=== PATIENT | male | born 1970 | race Caucasian/White ===

== ENCOUNTER 2017-04-11 12:42 | Inpatient (IN) | payer OTHER ==
[~2017-04-11] VITALS: Ht 170.2 cm; Wt 78.3 kg
[2017-04-11 13:43] LABS: EOSINOPHIL (%) 0.7 % (0-5); EOSINOPHIL COUNT 0.1 K/uL (0-0.3); HEMATOCRIT 41.8 % (38.0-50.0); IMMATURE GRANULOCYTE (%) 0.5 % (0.0-0.7); IMMATURE GRANULOCYTE COUNT 0.1 K/uL; MCH 33.5 PG (29.0-34.0); MCHC 35.9 G/DL (30.0-36.0); MCV 93.3 FL (86-99); MEAN PLAT.VOLUME 9.6 uM^3 (9.0-12.4); MONOCYTE (%) 7.7 % (3-12); MONOCYTE COUNT 0.8 K/uL (0-0.8); NEUTROPHIL (%) 80.8 % (45-76); PLATELET COUNT 112 K/uL (156-360); RBC DIS.WIDTH-CV 13.3 % (11.8-14.6); RBC DIS.WIDTH-SD 45.4 % (39-53); RED BLOOD COUNT 4.48 M/uL (4.00-5.50); WHITE BLOOD COUNT 9.8 K/uL (4.1-10.2)
[2017-04-11 13:47] LABS: CHLORIDE 109 mEq/L (99-109); POTASSIUM 4.2 mEq/L (3.7-5.4); SODIUM 143 mEq/L (136-147)
[2017-04-11 13:49] LABS: GLUCOSE 127 mg/dL (70-99)
[2017-04-11 13:50] LABS: ANION GAP 9 MEQ/L (2-14)
[2017-04-11 13:52] LABS: GFR ESTIMATE (CALCULATED) 57 mL/min/
[2017-04-11 13:53] LABS: UREA NITROGEN (BUN) 12 mg/dL (9-23)
[2017-04-11] MEDS ORDERED: LO-DOSE ASPIRIN81 M2 PO (16:04)
[2017-04-11] MEDS ORDERED: ONE DAILY1 EAC3 PO (16:04)
[2017-04-11 17:25] LABS: ADD MIUA? YES; BILIRUBIN NEGATIVE; BLOOD MODERATE; COLOR STRAW ((YELLOW)); GLUCOSE (STRIP) 50; KETONES 5; LEUKOCYTES NEGATIVE; NITRITE NEGATIVE; PROTEIN (STRIP) NEGATIVE; SPECIFIC GRAVITY 1.029 (1.000-1.030); UROBILINOGEN 0.2 MG/DL (0.2-1.0)
[2017-04-11 17:37] LABS: BACTERIA NONE SEEN /HPF; EPITHELIAL CELLS NONE SEEN /HPF; MUCUS NONE SEEN /LPF; RED BLOOD CELLS 0-5 /HPF (0-5); WHITE BLOOD CELLS 0-5 /HPF (0-5)
[2017-04-12 00:11] VITALS: BP 130/90
[2017-04-12 07:07] LABS: EOSINOPHIL (%) 0.2 % (0-5); HEMATOCRIT 34.1 % (38.0-50.0); IMMATURE GRANULOCYTE (%) 0.2 % (0.0-0.7); INSTRUMENT ABS NEUTROPHIL CT 4.2 K/uL; LYMPHOCYTE COUNT 1.4 K/uL (1.0-2.8); MCHC 35.5 G/DL (30.0-36.0); MCV 95.8 FL (86-99); MEAN PLAT.VOLUME 9.8 uM^3 (9.0-12.4); MONOCYTE (%) 9.8 % (3-12); MONOCYTE COUNT 0.6 K/uL (0-0.8); NEUTROPHIL (%) 67.3 % (45-76); NEUTROPHIL COUNT 4.2 K/uL (1.8-6.4); PLATELET COUNT 85 K/uL (156-360); RBC DIS.WIDTH-CV 13.6 % (11.8-14.6); RBC DIS.WIDTH-SD 47.5 % (39-53); RED BLOOD COUNT 3.56 M/uL (4.00-5.50); WHITE BLOOD COUNT 6.3 K/uL (4.1-10.2)
[2017-04-12 07:36] VITALS: BP 151/74
[2017-04-12 07:47] LABS: ANION GAP 9 MEQ/L (2-14); CHLORIDE 106 MEQ/L (99-109); POTASSIUM 4.6 MEQ/L (3.7-5.4); SAMPLE HEMOLYSIS CHECK 1; SAMPLE ICTERIC CHECK 0; SAMPLE LIPEMIA CHECK 0; SODIUM 139 MEQ/L (136-147)
[2017-04-12 07:53] LABS: ALKALINE PHOSPHATASE 40 IU/L (3-129); GLUCOSE 115 mg/dL (70-99); UREA NITROGEN (BUN) 9 mg/dL (9-23)
[2017-04-12 07:54] LABS: GFR ESTIMATE (CALCULATED) > 59 mL/min/
[2017-04-12 12:01] VITALS: BP 147/83
[2017-04-12 16:57] VITALS: BP 136/87
[2017-04-12 19:39] VITALS: BP 134/61
[2017-04-12 23:21] VITALS: BP 117/60
[2017-04-13 03:53] VITALS: BP 127/66
[2017-04-13 07:47] VITALS: BP 124/59
[2017-04-13 15:35] VITALS: BP 122/72
[2017-04-13 19:30] VITALS: BP 130/67
[2017-04-14 00:06] VITALS: BP 130/72
[2017-04-14 04:00] VITALS: BP 122/64
[2017-04-14 07:29] LABS: EOSINOPHIL (%) 4.6 % (0-5); EOSINOPHIL COUNT 0.2 K/uL (0-0.3); HEMATOCRIT 30.4 % (38.0-50.0); IMMATURE GRANULOCYTE (%) 0.4 % (0.0-0.7); INSTRUMENT ABS NEUTROPHIL CT 3.1 K/uL; LYMPHOCYTE COUNT 1.1 K/uL (1.0-2.8); MCH 33.8 PG (29.0-34.0); MCHC 35.5 G/DL (30.0-36.0); MONOCYTE (%) 9.5 % (3-12); MONOCYTE COUNT 0.5 K/uL (0-0.8); NEUTROPHIL (%) 63.4 % (45-76); NEUTROPHIL COUNT 3.1 K/uL (1.8-6.4); RBC DIS.WIDTH-CV 13.2 % (11.8-14.6); RBC DIS.WIDTH-SD 45.2 % (39-53); WHITE BLOOD COUNT 4.8 K/uL (4.1-10.2)
[2017-04-14 07:41] VITALS: BP 117/62
[2017-04-14 07:53] LABS: MEAN PLAT.VOLUME 10.5 uM^3 (9.0-12.4); PLAT.SUFFICIENCY DECREASED; PLATELET COUNT 81 K/uL (156-360)
[2017-04-14 15:30] VITALS: BP 123/75
[2017-04-14 19:18] VITALS: BP 129/70
[2017-04-14 23:15] VITALS: BP 122/69
[2017-04-15 07:31] VITALS: BP 146/76
[2017-04-15 12:16] VITALS: BP 148/80
[2017-04-15 16:55] VITALS: BP 137/77
[2017-04-15 23:38] VITALS: BP 121/69
[2017-04-16 07:23] VITALS: BP 142/65
[2017-04-16] MEDS ORDERED: ENDOCET 5-3251 EACH PO (13:08)
[2017-04-16 15:34] VITALS: BP 134/76
== END 2017-04-16 18:28 | disposition home or self-care (01) | DRG 199 ==
LOC: EME 12:42 → EDOF 16:30 → 3EAST 16:30
PROVIDERS: Emergency Medicine; Surgery
PROC: 0W9930Z Drainage of Right Pleural Cavity with Drainage Device, Percutaneous Approach (ICD-10-PCS; principal; 2017-04-11)
DX: S27.2XXA Traumatic hemopneumothorax, initial encounter (principal); S32.019 Unspecified fracture of first lumbar vertebra; S22.41XA Multiple fractures of ribs, right side, initial encounter for closed fracture; Y93.55 Activity, bike riding; D68.51 Activated protein C resistance; Z86.718 Personal history of other venous thrombosis and embolism; S32.029A Unspecified fracture of second lumbar vertebra, initial encounter for closed fracture; S32.039A Unspecified fracture of third lumbar vertebra, initial encounter for closed fracture; S32.049A Unspecified fracture of fourth lumbar vertebra, initial encounter for closed fracture; T79.7XXA Traumatic subcutaneous emphysema, initial encounter
CPT/HCPCS: 71010; 71260; 72129; 72132; 74177; 80048; 80053; 81003; 85025; 94799; 99281; 99285; J1170; J1650; J1885; J2270; J2405; J3010; J7030